=== PATIENT | female | born 1940 | race Caucasian/White ===

== ENCOUNTER 2023-09-19 07:19 | HOS | payer OTHER, MEDICARE, SELFPAY ==
[2023-09-19] VITALS (24 sets, daily range): BP systolic 121–223; BP diastolic 55–137; PULSE 59–80; RESP 12–35; TEMP 36.8–37; O2SAT 90–100
--- NOTE | ~2023-09-19 | CT_ITS ---
Non-contrast Head CT History: Altered mental status Technique: Axial non-contrast imaging of the brain was performed. Dose reduction technique was used on this scan by utilizing automated exposure control and iterative reconstruction technique. The dose -length product (DLP) was 681.00 mGy-cm. Findings: There is a large probable intraparenchymal acute hemorrhage in the left frontal lobe with d irect extension into the ventricular system. There is diffuse acute intraventricular hemorrhage throu ghout the ventricular system. There is marked dilatation of the ventricular system, especially latera l ventricles, compatible hydrocephalus, possibly reactive. Questionable minimal rightward midline erin ft in the left frontal lobe region. Right frontal lobe parenchymal hemorrhage measures approximately 3.9 cm in diameter. The calvarium appears normal. The visualized paranasal sinuses and mastoid air cells are clear. Impression: Large, acute left frontal lobe parenchymal hemorrhage with extensive intraventricular hemorrhage thro ughout the ventricular system, with direct connection to the left frontal hemorrhage. Prominent, diffuse ventricular system dilatation, consistent with reactive hydrocephalus. Case discussed with Dr. Meyer at 8:05 AM on 09/19/2023. Reviewed, dictated and finalized at location . Y CHECKER Impression: Large, acute left frontal lobe parenchymal hemorrhage with extensive intraventr icular hemorrhage throughout the ventricular system, with direct connection to the left frontal hemorrhage. Prominent, diffuse ventricular system dilatation, consistent with reactive hydr ocephalus. Case discussed with Dr. Meyer at 8:05 AM on 09/19/2023.
--- NOTE | 2023-09-19 07:31 | ECG_ITS ---
Measurements Intervals [place] Rate: 92 P: 34 IN: 180 QRS: -7 QRSD: 150 T: 120 QT: 431 QTc: 535 Interpretive Statements SINUS RHYTHM ATRIAL COUPLET LEFT BUNDLE BRANCH BLOCK ABNORMAL ECG NO PREVIOUS ECG AVAILABLE FOR COMPARISON Electronically Signed On 09-19-2023 9:17:07 [employer] MACHINE by Lopez Ramos D.O.
[2023-09-19 07:47] LABS: Basophils Absolute Auto 0.1 K/mm3 (0.0-0.1); Basophils Percent Auto 0.4 % (0.2-1.2); Eosinophils Absolute Auto 0.2 K/mm3 (0-0.3); Eosinophils Percent Auto 1.6 % (0-4.4); Hematocrit 42.5 % (37.0-47.0); Hemoglobin 13.7 g/dL (12.0-15.0); Immature Granulocyte Absolute 0.07 K/mm3 (0.00-0.031); Immature Granulocyte Percent A 0.6 % (0-0.5); Lymphocytes Percent Auto 16.1 % (18.3-44.2); Mean Corpuscular HGB Conc 32.2 g/dl (32-36); Mean Corpuscular Hemoglobin 30.6 pg (26-34); Mean Corpuscular Volume 94.9 fl (80-100); Mean Platelet Volume 9.9 fl (7.4-10.4); Monocytes Percent Auto 7.7 % (2.6-8.5); Neutrophils Absolute Auto 9.2 K/mm3 (1.3-6.7); Neutrophils Percent Auto 73.6 % (45.5-73.1); Platelet Count Result 342 k/mm3 (150-375); Red Blood Count 4.48 M/mm3 (4.2-5.4); Red Cell Distribution Width 15.4 % (11.5-14.5); White Blood Count 12.4 K/mm3 (4.5-10.0)
[2023-09-19 07:48] LABS: Add Urine Microscopic? YES; Appearance Urine Cloudy (Clear); Bacteria Urine None Seen /hpf; Bilirubin Urine Negative (Negative); Blood Urine 3+ (Negative); Color Urine Yellow (Yellow); Glucose Urine UA 2+ mg/dL (Negative); Ketones Urine Negative (Negative); Leukocyte Esterase Ur 2+ LEU/UL (Negative); Nitrate Urine Negative (Negative); Non Pathogenic Casts 0-2; Protein Urine 3+ mg/dL (Negative); RBC Urine >100 /hpf (0-2); Squamous Epithelial Cell Urine None seen /hpf (Few); Urobilinogen Urine 0.2 mg/dL (<2.0); WBC Urine >100 /hpf; pH Urine 7.5 (5.0-9.0)
[2023-09-19 07:53] LABS: Alanine Aminotransferase 33 U/L (6-35); Albumin Level 4.1 g/dL (3.5-5.1); Alkaline Phosphatase 102 U/L (38-126); Anion Gap 11 mmol/L (8-16); Aspartate Amino Transferase 42 U/L (14-36); Bilirubin,Total 0.8 mg/dL (0.2-1.3); Blood Urea Nitrogen 15 mg/dL (7-17); Calcium 9.2 mg/dL (8.4-10.2); Carbon Dioxide 30 mmol/L (22-30); Chloride 94 mmol/L (98-107); Estimated CRCL calculation 54 ml/min; Estimated Glomerular Filt Rate > 60; Glucose 275 mg/dL (65-110); INR 1.1; Partial Thromboplastin Time 22.1 SECONDS (22.3-36.8); Potassium 2.9 mmol/L (3.4-5.0); Prothrombin Time 15.3 Seconds (11.1-14.7); Sodium 135 mmol/L (137-145)
--- NOTE | 2023-09-19 08:02 | ED.AMS ---
HPI - Altered Mental Status General Chief Complaint: Altered Mental Status Stated Complaint: unresponsive Time Seen by Provider: 09/19/23 07:33 Source: family and EMS Mode of arrival: EMS History of Present Illness HPI narrative: 82 years old white female came from prison , after being found unresponsive. Last time was seen in her normal condition at 4:00 a.m. when they went and at 6:30 a.m. she was not responding, patient is DNR, currently have agonal snoring respiration with periods of apnea Related Data Allergies Allergy/AdvReac Type Severity Reaction Status Date / Time SHELLFISH Allergy Severe THROAT Uncoded 11/04/18 12:16 SWELLING/ITCHING Review of Systems Review of Systems: ROS unobtainable: Yes unobtainable due to endotracheal tube and unobtainable due to mental status Exam Narrative: General appearance: Well-developed, well-nourished, and responsive Skin: Normal color Head: Normocephalic, nontraumatic Eyes: Clear conjunctiva ENT: Oropharynx normal, ears normal, nose normal Neck: Supple, nontender Chest and respiratory: snoring respirations with periods of apnea Heart: Regular rate/rhythm Abdomen: Soft, nontender, no organomegaly, quiet bowel sounds Vascular: Normal peripheral pulses, normal capillary refill. Musculoskeletal: unresponsive Neurologic: unresponsive, comatose, snoring respiration with periods of apnea Course Reevaluation(s) Reevaluation #1: deteriorating Date: 09/19/23 Time: 08:23 Vital Signs Vital signs: Vital Signs Temperature 37.0 C 09/19/23 07:20 Pulse Rate 74 09/19/23 07:20 Respiratory Rate 20 09/19/23 07:20 Blood Pressure 223/121 H 09/19/23 07:20 Pulse Oximetry 94 09/19/23 07:20 Oxygen Delivery Room Air 09/19/23 07:20 Temperature 37.0 C 09/19/23 07:20 Pulse Rate 74 09/19/23 07:20 Respiratory Rate 20 09/19/23 07:20 Blood Pressure 223/121 H 09/19/23 07:20 Pulse Oximetry 94 09/19/23 07:20 Oxygen Delivery Room Air 09/19/23 07:20 MDM - Altered Mental Status MDM Narrative Medical decision making narrative: patient came from prison with unresponsiveness Physical examination as above vital signs on arrival showed blood pressure 223/121 Differential diagnosis intracranial hemorrhage, uncontrolled hypertension CT head without contrast showed extensive intracranial hemorrhage Patient's son at the bedside who declined to transfer patient anywhere , requested comfort measures/ hospice Differential Diagnosis Differential diagnosis: Likely altered mental status, subarachnoid hemorrhage and other ( intracranial hemorrhage) Medical Records Attestation: I reviewed the patient's medical records. Lab Data Attestation: I reviewed the patient's lab results. 09/19/23 07:35 09/19/23 07:35 Labs: Lab Results 09/19/23 09/19/23 Range/Units 07:35 07:39 WBC 12.4 H (4.5-10.0) K/mm3 RBC 4.48 (4.2-5.4) M/mm3 Hgb 13.7 (12.0-15.0) g/dL Hct 42.5 (37.0-47.0) % MCV 94.9 (80-100) fl MCH 30.6 (26-34) pg MCHC 32.2 (32-36) g/dl RDW 15.4 H (11.5-14.5) % Plt Count 342 (150-375) k/mm3 MPV 9.9 (7.4-10.4) fl Immature Gran % (Auto) 0.6 H (0-0.5) % Neut % (Auto) 73.6 H (45.5-73.1) % Lymph % (Auto) 16.1 L (18.3-44.2) % Mason % (Auto) 7.7 (2.6-8.5) % Eos % (Auto) 1.6 (0-4.4) % Baso % (Auto) 0.4 (0.2-1.2) % Lymph # (Auto) 2.00 (0.9-3.2) K/mm3 Mason # (Auto) 1.0 H (0.1-0.6) K/mm3 Eos # (Auto) 0.2 (0-0.3) K/mm3 Baso # (Auto) 0.1 (0.0-0.1) K/mm3 Abs Immat Gran (auto) 0.07 H (0.00-0.031) K/mm3 Absolute Neuts (auto) 9.2 H (1.3-6.7) K/mm3 Absolute Nucleated
--- NOTE | 2023-09-19 11:13 | PC.NURSE ---
hospitality tray given to family
[2023-09-19] MEDS: MORPHINE SULFATE (*CRX) 2 MG/ML INJ 1 MG IV PUSH (13:10)
--- NOTE | 2023-09-19 13:16 | PCCCNOTE ---
CC contacted to meet with family regarding a hospice referral. Faith was contacted, forms faxed, and pt preference form signed by her son, Javi Shea, her POA. ([phone])
[2023-09-19] MEDS: LORazepam INJ (*CRX) 2 MG/ML VIAL 0.5 MG IV PUSH (13:20)
--- NOTE | 2023-09-19 14:40 | ADMGEN ---
This patient, Franck Queen, was admitted to Medical Room 349-01. Patient/family oriented to hospital policies and general routines including ID bracelet, bed and alarms, visiting hours, pain management, procedures, bathroom and other care routines, personal items, smoking policy, room service/diet, and visiting hours. Information on how to activate the Rapid Response Team has been discussed. Patient/Family are encouraged to report perceived risks to care and to ask questions if they do not understand what they are told or what they should do.
--- NOTE | 2023-09-19 16:40 | PM.IMHP ---
H&P: HPI History of Present Illness Date/Time: 09/19/23 16:40 Chief Complaint: Uncontrolled dyspnea Narrative: 82 y/o f was found unresponsive at facility at sent to ED. CT brain revealed large intraparenchymal hemorrhage. She was tachypneic and appeared dyspneic. Family desired admission to inpatient hospice service for symptom management. Review of Systems Review of Systems: ROS unobtainable: Yes unobtainable due to medical condition PMFSH Past Medical History Medical History (Updated 09/19/23 @ 16:59 by Erwin Hernandez MD) Chronic, continuous use of opioids Pacemaker Rheumatoid arthritis Family History Family History (Updated 09/19/23 @ 16:59 by Erwin Hernandez MD) Father No problems noted. Mother No problems noted. Social History Social History (Updated 09/19/23 @ 17:00 by Erwin Hernandez MD) Social History: Resides at a facility. Code Status DNR. Smoking status: Never smoker Alcohol intake: former Substance use: never Meds Home Medications and Allergies Allergies Allergy/AdvReac Type Severity Reaction Status Date / Time SHELLFISH Allergy Severe THROAT Uncoded 11/04/18 12:16 SWELLING/ITCHING Vital Signs Vital Signs - 24 hr 09/19/23 07:20 09/19/23 08:39 09/19/23 07:26 Temperature 98.6 F Pulse Rate 74 80 Respiratory Rate 20 22 H Blood Pressure 223/121 H 223/121 H Pulse Oximetry 94 96 94 Oxygen Delivery Room Air Nasal Cannula Oxygen Flow Rate 2 09/19/23 07:32 09/19/23 07:47 09/19/23 09:32 Temperature Pulse Rate 72 61 Respiratory Rate 27 H 35 H 27 H Blood Pressure 215/137 H 201/84 H 150/68 H Pulse Oximetry 90 90 99 Oxygen Delivery Oxygen Flow Rate 09/19/23 10:17 09/19/23 10:32 09/19/23 10:47 Temperature Pulse Rate 61 62 62 Respiratory Rate 23 H 24 H 25 H Blood Pressure 141/65 H 141/72 H 144/67 H Pulse Oximetry 97 97 97 Oxygen Delivery Oxygen Flow Rate 09/19/23 11:17 09/19/23 11:45 09/19/23 11:47 Temperature Pulse Rate 61 61 60 Respiratory Rate 24 H 24 H 24 H Blood Pressure 133/62 141/63 H Pulse Oximetry 98 99 99 Oxygen Delivery Oxygen Flow Rate 09/19/23 12:06 09/19/23 12:15 09/19/23 12:17 Temperature Pulse Rate 68 61 60 Respiratory Rate 12 25 H 21 H Blood Pressure 144/55 H Pulse Oximetry 98 100 Oxygen Delivery Oxygen Flow Rate 09/19/23 12:36 09/19/23 12:45 09/19/23 12:47 Temperature Pulse Rate 62 62 76 Respiratory Rate 24 H 19 24 H Blood Pressure 143/66 H Pulse Oximetry 99 99 99 Oxygen Delivery Oxygen Flow Rate 09/19/23 13:08 09/19/23 14:02 09/19/23 15:41 Temperature 98.3 F Pulse Rate 63 60 79 Respiratory Rate 26 H 27 H 26 H Blood Pressure 121/63 142/56 H Pulse Oximetry 99 97 98 Oxygen Delivery Oxygen Flow Rate Exam Narrative: Elderly female lying in hospital bed is mildly tachypneic, otherwise in NAD. Psych: unresponsive to verbal or tactile stimuli. Neck: no JVD Chest: CTA Heart: RR, NL S1,2, no murmur. Extr: 2-3 + nonpitting edema of legs. Abd: BS hypoactive w/o mass or tenderness. MS: w/o gross deformity to visual inspection. Neuro: CN symmetric to visual inspection. H&P: Results Labs Labs: Short CBC 09/19/23 Range/Units 07:35 WBC 12.4 H (4.5-10.0) K/mm3 Hgb 13.7 (12.0-15.0) g/dL Hct 42.5 (37.0-47.0) % Plt Count 342 (150-375) k/mm3 BMP 09/19/23 07:35 Sodium 135 L Potassium 2.9 L Chloride 94 L Carbon Dioxide 30 BUN 15 Creatinine 0.80 Glucose 275 H Calcium 9.2 Liver Function 09/19/23 Range/Units 07:35 Total Bilirubin 0.8 (0.2-1.3) mg/dL AST 42 H (14-36) U/L ALT 33 (6-35) U/L Alkaline Phosphatase 102 (38-126) U/L Albumin 4.1 (3.5-5.1) g/dL Urine 09/19/23 Range/Units 07:39 Urine Color Yellow (Yellow) Urine Appearance Cloudy H (Clear) Urine pH 7.5 (5.0-9.0) Ur Specific [place] 1.010 (1.001-1.035) Uri
[2023-09-19] MEDS: MORPHINE 50 MG/NS 100ML (*CRX) 50 MG/100 ML BAG IV CONT (17:42)
[2023-09-19] MEDS: GLYCOPYRROLATE INJ (*SP) 0.2 MG/ML VIAL 0.1 MG IV PUSH ×2 (17:52→19:54)
[2023-09-19] MEDS: levETIRAcetam 1000MG/NACL100ML 1,000 MG/100 ML BAG 400 MG IVPB (19:54)
[2023-09-19] MEDS: ACETAMINOPHEN 650 MG SUPPOSITORY RECTAL (19:54)
--- NOTE | 2023-09-19 23:50 | PC.NURSE ---
son neisha at bedside called nurse to room. noted that patient's respirations had ceased. no palpable pulse. and no heart beat auscultated. marylou chavez verified. same. alban rubiocamp housekeeper and son, neisha called and notified brother JOHNIE salmon.
--- NOTE | 2023-09-20 00:05 | PC.NURSE ---
notified dr zuleta that patient at [id number].
--- NOTE | 2023-09-20 02:02 | PC.NURSE ---
[facility] transplant called and stated patient is not a candidate for organ donation.
--- NOTE | 2023-09-20 02:04 | PC.NURSE ---
called [facility] and notified that body is ready for release and in the morgue.
--- NOTE | 2023-09-28 07:27 | P.DN_ITS ---
Discharge Summary Date and Time Date of : 09/19/23 Time of : 23:42 Provider Pronounced By: FRANDY JOHNSON RN Probable Cause of Probable Cause of : intracranial hemorrhage Summary Hospital Course: admitted to inpatient hospice for uncontrolled dyspnea medications titrated to comfort Ms. Queen peacefully. Additional Data Confirmation of as documented by pronouncing clinician: Pupillary Reflex, Palpable Pulses, Response to Stimuli, Heart Tones and Breath Sounds Name of Provider Notified: DR. JOSE E DOMÍNGUEZ Time Provider Notified: 23:50 Provider Requests Autopsy: No Family Requests Autopsy: No Ballet Master/Mistress Notified: Yes Date [facility] Notified of : 09/20/23 Time [facility] Notified of : 00:29
== END 2023-09-19 23:42 | disposition expired | DRG 951 ==
LOC: ANHED 08:35 → ANH3MED 09-20 01:44
PROVIDERS: Admitting Provider Internal Medicine; Emergency Provider Emergency Medicine; PCP Family Medicine; Visit Provider Internal Medicine
DX: Z51.5 Encounter for palliative care (principal); I62.9 Nontraumatic intracranial hemorrhage, unspecified; M06.9 Rheumatoid arthritis, unspecified; Z95.0 Presence of cardiac pacemaker
CPT/HCPCS: 36415; 70450; 80053; 81001; 85025; 85610; 85730; 87086; 93005; 99285; A9270; J1953; J2060; J2270